=== PATIENT | male | born 1985 | race Caucasian/White ===

== ENCOUNTER 2017-03-12 12:40 | Emergency (ER) | payer OTHER ==
--- NOTE | 2017-03-12 13:50 | DIAGNOSTIC IMAGING REPORT ---
PROCEDURE: XR CHEST 2 VIEW INDICATION: Poor inspiration. TECHNIQUE: PA and lateral view. COMPARISON: None. FINDINGS: Poor inspiration but lungs are clear. Small right pleural effusion versus thickening. Cardiovascular structures are normal. Bony thorax is unremarkable. IMPRESSION: 1. Poor inspiration 2. Small right pleural effusion versus pleural thickening.
--- NOTE | 2017-03-12 16:17 | DIAGNOSTIC IMAGING REPORT ---
PROCEDURE: CTA THORAX WITH CONTRAST INDICATION: Right-sided chest pain. TECHNIQUE: 80 ml of Isovue 370 was injected intravenously and axial images were obtained of the entire thorax with 3D sagittal and coronal MIP reconstructions. COMPARISON: Chest x-ray 03/12/2017. FINDINGS: No evidence of pulmonary emboli. There are two 4 mm right upper lobe nodules, 8 mm minor fissure and 4 mm right major fissure nodules, indeterminate but likely postinflammatory. Minor right lower lobe atelectasis with small bilateral pleural effusions, right greater than left. Mild bilateral hilar adenopathy. Normal thoracic aorta without dissection or aneurysm. Normal heart size. Small hiatal hernia. Mild degenerative changes of the spine. IMPRESSION: 1. No evidence of pulmonary emboli 2. Small bilateral pleural effusions which may reflect fluid overload. Consider cardiac, hepatic or renal disease. 3. Minor right lower lobe atelectasis 4. Nonspecific small pulmonary nodules, indeterminate but likely postinflammatory 5. Results discussed with Caryn Candelaria, PAC
--- NOTE | 2017-03-12 16:23 | ED ORDER SUMMARY ---
..... Patient: PARAG ARIAS OrderSheet [facility] VisitID: [id number] [place] [address] 31y, M Registration Date/Time: 03/12/2017 ORDER SHEET Weight: 149.6 kg (stated) Allergies: No Known Drug Allergy GENERAL ORDERS: Chest 2V Urgent (13:24 03/12/2017 EKoroleva P.A.-C) (Ack 13:27 Shukri) (13:28 LWhalen R.N.) Supply Chain Logistics Manager (Continuous) (13:24 03/12/2017 EKoroleva P.A.-C) (13:28 LWhalen R.N.) Cardiac Panel Stat (13:24 03/12/2017 EKoroleva P.A.-C) (Ack 13:27 Shukri) (13:28 LWhalen R.N.) EKG - ER Stat (13:24 03/12/2017 EKoroleva P.A.-C) (Ack 13:27 Shukri) (13:27 Shukri) Vitals (14:52 03/12/2017 EKoroleva P.A.-C) (14:53 LWhalen R.N.) D-Dimer Urgent (15:03 03/12/2017 EKoroleva P.A.-C) (Ack 15:08 Shukri) CTA Thorax w Cont (No) (see lab) Urgent (15:39 03/12/2017 EKoroleva P.A.-C) (Ack 16:09 Shukri) (16:27 Bijuigor) MEDICATION ORDERS: IV FLUIDS: IV Saline Lock (13:24 03/12/2017 EKoroleva P.A.-C) (Ack 13:28 LWhalen R.N.) (15:43 LWhalen R.N.) Toradol IV 30 mg (NOW) (14:49 03/12/2017 EKoroleva P.A.-C) (14:53 LWhalen R.N.) Dilaudid IV 0.5 mg (HIGH ALERT MEDICATION, NOW) (15:39 03/12/2017 EKoroleva P.A.-C) (15:43 Louie Wisdom) ORDER SHEET NOTES: [Electronically signed by Seema Candelaria P.A.-C (16:32 03/12/2017)] [Electronically signed by Galo Draper R.N. (16:34 03/12/2017)] [Electronically locked/signed by Galo Draper R.N. (16:34 03/12/2017)]
--- NOTE | 2017-03-12 16:23 | ED NURSING NOTES ---
Clinical Report - Nurses [facility] [address] [place] [address] 03/12/2017 12:42 Patient: PARAG ARIAS TRIAGE Triage time 12:51 Mar 12 2017. Acuity: LEVEL 3. Chief Complaint: CHEST PAIN. ЕЛЕНА COMA SCORE: Елена Coma Scale: 15- eyes open spontaneously (4); best verbal response- oriented x 4 (5); best motor response- obeys commands (6). --12:56 Alanna Anderson R.N. 12:51 03/12/17. BP: 168/106. HR: 66. RR: 20. O2 saturation: 98%. Temp: 98.4 F. Pain level now 9/10. --12:56 Alanna Anderson R.N. Weight: 149.6 kg stated. Height/Length: 68 inches Per Patient. BMI: 50.2. --12:53 Alanna Anderson R.N. Medications Atenolol Oral. --12:51 Alanna Anderson R.N. Lisinopril Oral. --12:52 Alanna Anderson R.N. Citalopram Hydrobromide Oral. --12:52 Alanna Anderson R.N. Naproxen Oral. --12:52 Alanna Anderson R.N. Omeprazole Oral. --12:53 Alanna Anderson R.N. High cholesterol. --12:53 Alanna Anderson R.N. Flonase Nasal. --12:53 Alanna Anderson R.N. Allergies No Known Drug Allergy. --16:33 Galo Draper R.N. History Arrived by private vehicle. Historian: patient. Accompanied by family. Onset. (2 weeks). ( Right sided chest pain for two weeks now. Has a slight cough.). He has had a cough. No difficulty breathing, sweating episodes, nausea, vomiting or fever. Treatment OPERATIONAL INTELLIGENCE OFFICER: None. PAST MEDICAL HX: Hypertension. No history of diabetes mellitus, heart disease or lung disease. Immunizations: up-to-date. SOCIAL HX: Current every day heavy tobacco smoker- 1 pack per day. Occasional alcohol use; consumes beer weekly. History of drug use: marijuana. SELF HARM ASSESSMENT: A self harm assessment was performed. The patient answered "no" to the question "Have you recently felt down, depressed, or hopeless?" and "Do you have thoughts of harming or killing yourself?". FALL RISK ASSESSMENT: Fall risk assessment completed. No fall risk identified. NUTRITIONAL RISK ASSESSMENT: The nutritional risk assessment revealed no deficiencies. FUNCTIONAL ASSESSMENT: Functional assessment: no impairments noted. LEARNING NEEDS ASSESSMENT: The learning needs assessment revealed no barriers. ABUSE ASSESSMENT: Abuse assessment: (yes) The patient was asked "Do you feel safe in your home?". SKIN INTEGRITY ASSESSMENT: Skin integrity risk assessment completed. No skin integrity risk identified. --12:56 Alanna Anderson R.N. PROBLEMS: Acid reflux . Depression . Elevated Cholesterol. High blood pressure . --12:54 Alanna Anderson R.N. ADDITIONAL SURGERIES: Tonsellectomy . --12:54 Alanna Anderson R.N. Interventions ID band on patient. --12:56 Alanna Anderson R.N. PHYSICAL ASSESSMENT Ambulatory to room. GENERAL / NEURO / PSYCH: Alert. Oriented X 4. Appears in no acute distress. HEENT: Mucous membranes are pink. RESPIRATORY: Respirations not labored. Chest wall tenderness. Expiratory wheezes present; wheezes audible without auscultation. CVS: Normal sinus rhythm noted. Heart sounds within normal limits. Pulses within normal limits. Capillary refill less than 2 seconds. GI / : Abdomen soft and nontender. ( Last BM yesterday and normal). EXTREMITIES: No lower extremity edema. SKIN: Skin is warm and dry. Normal skin turgor. Skin is non-tender. --12:57 Alanna Anderson R.N. NURSING PROGRESS NOTES The initial plan of care for this patient includes an assessment with efforts to address patient positioning, appropriate ambient lighting and comfortable environmental temperature; impairment of the cardiovascular and musculoskeletal system. monitoring tech, pulse oximeter and NIBP monitor placed on patient. Patient gowned. Head of bed elevated 45 degrees. Reassurance given. Call light placed in reach. Side rails up x 1. Bed placed in lowest position. Brakes of bed on. --12:58 Alanna Anderson R.N. 13:12 03/12/2017 Site #1 started via IV in the right upper arm with an 20g angiocath, with aseptic technique and good blood return; one attempt. Blood drawn: rainbow set. Labeled in the presence of the patient and sent to the lab. Saline lock flushed with 10 mL saline. --13:12 Alanna Anderson R.N. 14:53 03/12/2017 Toradol IVP 30 mg given over 2 minute(s) via site #1. Allergies verified and confirmed 5 rights. IV patency established. IV site checked: no pain, redness, or swelling. IV flushed thoroughly pre- and post-medication administration. --14:53 Alanna Anderson R.N. 14:55 03/12/17. BP: 152/71. HR: 60. RR: 18. O2 saturation: 97%. Temp: 98.4 F. Pain level now: 7/10. 14:30 03/12/17. BP: 153/101. HR: 65. RR: 20. O2 saturation: 96%. 13:30 03/12/17. BP: 162/93. HR: 65. RR: 18. O2 saturation: 98%. --14:57 Alanna Anderson R.N. 15:43 03/12/2017 Dilaudid (HYDROmorphone HCl PF) IVP 0.5 mg given over 2 minute(s) via site #1. Allergies verified, confirmed 5 rights and sedative warning given to the patient and patient's family. IV patency established. IV site checked: no pain, redness, or swelling. IV flushed thoroughly pre- and post-medication administration. --15:43 Alanna Anderson R.N. 15:44 03/12/17. BP: 132/81. HR: 66. RR: 18. O2 saturation: 96%. Pain level now 7/10. --15:44 Alanna Anderson R.N. DISPOSITION / DISCHARGE 16:29 03/12/2017 Site #1 removed upon discharge. Catheter intact. Bandaid applied. --16:29 Galo Draper R.N. Departure time: 16:31. Condition at departure: improved. No learning barriers present. Discharge instructions provided and reviewed with the patient. Reviewed medication(s) side effects, precautions, dosing and course information. Prescription(s) given to the patient (hydrocodone). Patient verbalized understanding. Written instructions provided in [place]. The patient was discharged by the physician assistant chief of police. He was discharged home and accompanied by parent. He left the Emergency Department ambulatory and via private vehicle. Parent driving. ЕЛЕНА COMA SCORE: [place] Coma Scale: 15- eyes open spontaneously (4); best verbal response- oriented x 4 (5); best motor response- obeys commands (6). --16:33 Galo Draper R.N. 16:28 03/12/17. BP: 148/71. HR: 85. RR: 16. O2 saturation: 98%. Pain level now 0/10. --16:33 Galo Draper R.N. Locked/Released at 03/12/2017 16:34 by Galo Draper R.N.
--- NOTE | 2017-03-12 16:23 | ED ORDER SUMMARY ---
..... Patient: PARAG ARIAS OrderSheet [facility] VisitID: [id number] [place] [address] 31y, M Registration Date/Time: 03/12/2017 ORDER SHEET Weight: 149.6 kg (stated) Allergies: No Known Drug Allergy GENERAL ORDERS: Chest 2V Urgent (13:24 03/12/2017 EKoroleva P.A.-C) (Ack 13:27 Shukri) (13:28 LWhalen R.N.) Ad Operations Specialist (Continuous) (13:24 03/12/2017 EKoroleva P.A.-C) (13:28 LWhalen R.N.) Cardiac Panel Stat (13:24 03/12/2017 EKoroleva P.A.-C) (Ack 13:27 Shukri) (13:28 LWhalen R.N.) EKG - ER Stat (13:24 03/12/2017 EKoroleva P.A.-C) (Ack 13:27 Shukri) (13:27 Shukri) Vitals (14:52 03/12/2017 EKoroleva P.A.-C) (14:53 LWhalen R.N.) D-Dimer Urgent (15:03 03/12/2017 EKoroleva P.A.-C) (Ack 15:08 Shukri) CTA Thorax w Cont (No) (see lab) Urgent (15:39 03/12/2017 EKoroleva P.A.-C) (Ack 16:09 Shukri) (16:27 Bijuigor) MEDICATION ORDERS: IV FLUIDS: IV Saline Lock (13:24 03/12/2017 EKoroleva P.A.-C) (Ack 13:28 LWhalen R.N.) (15:43 LWhalen R.N.) Toradol IV 30 mg (NOW) (14:49 03/12/2017 EKoroleva P.A.-C) (14:53 LWhalen R.N.) Dilaudid IV 0.5 mg (HIGH ALERT MEDICATION, NOW) (15:39 03/12/2017 EKoroleva P.A.-C) (15:43 Louie Wisdom) ORDER SHEET NOTES: [Electronically signed by Seema Candelaria P.A.-C (16:32 03/12/2017)] [Electronically signed by Galo Draper R.N. (16:34 03/12/2017)] [Electronically locked/signed by Galo Draper R.N. (16:34 03/12/2017)]
--- NOTE | 2017-03-12 16:23 | ED CLINICAL REPORT ---
Clinical Report - Physicians/Mid Levels [facility] [address] [place] [address] 03/12/2017 12:42 Patient: PARAG ARIAS Time Seen: 13:22 Mar 12 2017. Arrived- By private vehicle. Historian- patient. HISTORY OF PRESENT ILLNESS Chief Complaint: COUGH. This started just prior to arrival and is still present. No difficulty breathing, chest discomfort, fever, chills or sore throat. No nasal congestion or discharge or sinus pressure. He has had chest pain. (Patient reports pain over the last 2 weeks. Patient reports today this morning had worsening of the pain. Reports moving, and having sharp pain to the right side, such pain is not improving. Patient denies any history of PE or DVT. Patient reports being prediabetic, history of hypertension and hyperglycemia. Patient is an every day smoker, was then long smoking history.). Additional history - No known contact with a sick individual. No recent travel. REVIEW OF SYSTEMS No headache, vomiting, diarrhea, pedal edema or calf pain. All systems otherwise negative, except as recorded above. SOCIAL HISTORY Current every day smoker (smoking since age 11). Alcohol use. History of drug use: marijuana. ADDITIONAL NOTES The nursing notes have been reviewed. PHYSICAL EXAM Vital Signs: 03/12/2017 12:51 BP: 168/106. HR: 66. RR: 20. O2 saturation: 98%. Temp: 98.4 F. Appearance: Alert. Eyes: Eyes normal inspection. ENT: Ears normal. Nose normal. Pharynx normal. Uvula midline. No tonsillar exudate or muffled or hoarse voice. Neck: Normal inspection. No meningeal signs or lymphadenopathy. CVS: Normal heart rate and rhythm. Heart sounds normal. No cardiac murmur. No decreased pulses. Respiratory: No respiratory distress. Breath sounds normal. No accessory muscle use, splinting, decreased breath sounds or rales. right pain tenderness on palpation, no rash, no erythema. Abdomen: Soft and nontender. Obese. Neuro: Oriented X 3. LABS, X-RAYS, AND EKG Chest X-ray: (IMPRESSION: 1. Poor inspiration 2. Small right pleural effusion versus pleural thickening. Electronically Final signed by:Popeye Minaya MD 03/12/2017 1:49:57 PM). Laboratory Tests: CBC w Diff: (VEE: 03/12/2017 13:10) ( [facility] 03/12/2017 13:45) Final results Test Result Flag Units (Reference) WHITE BLOOD COUNT 10.0 K/uL (4.5-11.5) RED BLOOD COUNT 4.49 L M/uL (4.50-5.90) HEMOGLOBIN 13.1 L gm/dL (13.5-17.5) HEMATOCRIT 39.5 L % (41.0-53.0) MEAN CELL VOLUME 88 fL (80-100) MEAN CORPUSCULAR HGB 29 pg (26-34) MEAN CORPUSCULAR HGB CONC 33 g/dL (31-37) RED CELL DISTRIBUTION WIDTH 14.3 % (11.6-14.8) PLATELET COUNT 203 K/uL (150-400) NEUTROPHIL % 80.8 H % (50-75) LYMPH % 11.2 L % (25-40) MONO % 5.8 % (3-14) EOSINOPHIL % 1.6 % (0-4) BASOPHIL % 0.6 % (0-2) [id number]: (VEE: 03/12/2017 13:10) ( [facility] 03/12/2017 15:16) Final results Test Result Flag Units (Reference) D-DIMER QUANTITATIVE 1.80 H ug/mLFEU (0.27-0.52) The primary value of this quantitative assay relates toits negative predictive value (i.e. exclusion) of pulmonaryembolism/deep vein thrombosis/DIC.Elevated levels of d-dimer may also occur with:, age, cancer, inflammation, liver disease,post-op, infection, hematoma, coronary disease, peripheralarteriopathy, bleeding disorders and thrombolytic treatment.Results should be correlated with other clinical andradiological data.Testing Methodology: Latex Immunoassay CHEM 13 PANEL: (VEE: 03/12/2017 13:10) ( [facility] 03/12/2017 13:53) Final results Test Result Flag Units (Reference) GLUCOSE 106 mg/dL (70-110) BUN 13 mg/dL (7-18) CREATININE 0.8 mg/dL (0.6-1.3) Estimated GFR >60 mL/min Estimated GFR- >60 mL/min Note: Persistent reduction over 3 months in eGFR<60 mL/min/1.73 m2 defines CKD. Patients with eGFR values>=60 mL/min/1.73 m2 may also have CKD if evidence ofpersistent proteinuria. Additional information may be foundat www.kidney.org. SODIUM 140 mmol/L (136-145) POTASSIUM 4.1 mmol/L (3.5-5.1) CHLORIDE 102 mmol/L (98-107) CARBON DIOXIDE 28 mmol/L (21-32) CALCIUM 9.2 mg/dL (8.5-10.1) TOTAL PROTEIN 7.4 g/dL (6.4-8.2) ALBUMIN 3.4 g/dL (3.3-5.0) BILIRUBIN, TOTAL 0.5 mg/dL (0.0-1.0) ALKALINE PHOSPHATASE 89 U/L (46-116) AST (SGOT) 29 U/L (15-37) ALT (SGPT) 48 U/L (12-78) MAGNESIUM 1.5 L mg/dL (1.8-2.4) CPK 66 U/L (24-260) TROPONIN I <0.05 ng/mL (0.00-1.5) TROPONIN REFERENCE RANGE:<0.1 NEGATIVE0.1-1.5 INDETERMINANT>1.5 POSITIVE . Note - Tests: (CTA chest: IMPRESSION: 1. No evidence of pulmonary emboli 2. Small bilateral pleural effusions which may reflect fluid overload. Consider cardiac, hepatic or renal disease. 3. Minor right lower lobe atelectasis 4. Nonspecific small pulmonary nodules, indeterminate but likely postinflammatory 5. Results discussed with SEEMA Caceres Electronically Final signed by:Popeye Minaya MD 03/12/2017 4:17:23 PM). PROGRESS AND PROCEDURES Course of Care: I had an intense conversation with the patient in regards to his predisposition for health risk and cardiac concerns, as he is prediabetic, obese, smoker, hypertensive and with hyperlipidemia. I informed patient that he needs immediate changes to his diet, weight loss as well as smoking cessation. He seems to be understanding of such, unsure if he will continue No signs of PE. Patient with ongoing pain over the last 2 weeks it is reproducible, questionait is a strain, as he reports he has been lifting recently. Patient with otherwise pain for 2 weeks and negative workup in the emergency department beyond a small pleural effusion bilateral in nature. Unclear etiology of such or how long such has been ongoing. No otherwise edema noted of the patient, no swelling. Patient understands need to follow-up, discussed diet changes, Lysol modifications. Discussed urgency of this, as he is at risk of multiple acute processes such as stroke and [place] if he does not modify his life. 03/12/2017 15:44 BP: 132/81. HR: 66. RR: 18. O2 saturation: 96%. 03/12/2017 14:55 BP: 152/71. HR: 60. RR: 18. O2 saturation: 97%. Temp: 98.4 F. Pain level now: 7/10. Patient is stable. Physical exam findings are improved. Symptoms better. Patient/family counseled. Disposition: Discharged. CLINICAL IMPRESSION Chest pain .12 lead EKG performed. Diabetes (PRE-Diabetic). Hypertension. Lifestyle problems: obesity. Substance abuse problems: abuse of nicotine. Substance dependence problems: dependence on nicotine. INSTRUCTIONS Prescription Medications: Hydrocodone/APAP 5mg / 325mg: take 1 orally every 6 hours as needed for pain. Dispense ten (10). No refill. Follow-up: Follow up with your doctor Wednesday in one week. (Electronically signed by Seema Candelaria P.A.-C 03/12/2017 16:32)
--- NOTE | 2017-03-12 16:23 | ED CLINICAL REPORT ---
Clinical Report - Physicians/Mid Levels [facility] [address] [place] [address] 03/12/2017 12:42 Patient: PARAG ARIAS Time Seen: 13:22 Mar 12 2017. Arrived- By private vehicle. Historian- patient. HISTORY OF PRESENT ILLNESS Chief Complaint: COUGH. This started just prior to arrival and is still present. No difficulty breathing, chest discomfort, fever, chills or sore throat. No nasal congestion or discharge or sinus pressure. He has had chest pain. (Patient reports pain over the last 2 weeks. Patient reports today this morning had worsening of the pain. Reports moving, and having sharp pain to the right side, such pain is not improving. Patient denies any history of PE or DVT. Patient reports being prediabetic, history of hypertension and hyperglycemia. Patient is an every day smoker, was then long smoking history.). Additional history - No known contact with a sick individual. No recent travel. REVIEW OF SYSTEMS No headache, vomiting, diarrhea, pedal edema or calf pain. All systems otherwise negative, except as recorded above. SOCIAL HISTORY Current every day smoker (smoking since age 11). Alcohol use. History of drug use: marijuana. ADDITIONAL NOTES The nursing notes have been reviewed. PHYSICAL EXAM Vital Signs: 03/12/2017 12:51 BP: 168/106. HR: 66. RR: 20. O2 saturation: 98%. Temp: 98.4 F. Appearance: Alert. Eyes: Eyes normal inspection. ENT: Ears normal. Nose normal. Pharynx normal. Uvula midline. No tonsillar exudate or muffled or hoarse voice. Neck: Normal inspection. No meningeal signs or lymphadenopathy. CVS: Normal heart rate and rhythm. Heart sounds normal. No cardiac murmur. No decreased pulses. Respiratory: No respiratory distress. Breath sounds normal. No accessory muscle use, splinting, decreased breath sounds or rales. right pain tenderness on palpation, no rash, no erythema. Abdomen: Soft and nontender. Obese. Neuro: Oriented X 3. LABS, X-RAYS, AND EKG Chest X-ray: (IMPRESSION: 1. Poor inspiration 2. Small right pleural effusion versus pleural thickening. Electronically Final signed by:Popeye Minaya MD 03/12/2017 1:49:57 PM). Laboratory Tests: CBC w Diff: (VEE: 03/12/2017 13:10) [facility]12[facility] 13:45) Final results Test Result Flag Units (Reference) WHITE BLOOD COUNT 10.0 K/uL (4.5-11.5) RED BLOOD COUNT 4.49 L M/uL (4.50-5.90) HEMOGLOBIN 13.1 L gm/dL (13.5-17.5) HEMATOCRIT 39.5 L % (41.0-53.0) MEAN CELL VOLUME 88 fL (80-100) MEAN CORPUSCULAR HGB 29 pg (26-34) MEAN CORPUSCULAR HGB CONC 33 g/dL (31-37) RED CELL DISTRIBUTION WIDTH 14.3 % (11.6-14.8) PLATELET COUNT 203 K/uL (150-400) NEUTROPHIL % 80.8 H % (50-75) LYMPH % 11.2 L % (25-40) MONO % 5.8 % (3-14) EOSINOPHIL % 1.6 % (0-4) BASOPHIL % 0.6 % (0-2) [id number]: (VEE: 03/12/2017 13:10) ( [facility] 03/12/2017 15:16) Final results Test Result Flag Units (Reference) D-DIMER QUANTITATIVE 1.80 H ug/mLFEU (0.27-0.52) The primary value of this quantitative assay relates toits negative predictive value (i.e. exclusion) of pulmonaryembolism/deep vein thrombosis/DIC.Elevated levels of d-dimer may also occur with:, age, cancer, inflammation, liver disease,post-op, infection, hematoma, coronary disease, peripheralarteriopathy, bleeding disorders and thrombolytic treatment.Results should be correlated with other clinical andradiological data.Testing Methodology: Latex Immunoassay CHEM 13 PANEL: (VEE: 03/12/2017 13:10) ( [facility] 03/12/2017 13:53) Final results Test Result Flag Units (Reference) GLUCOSE 106 mg/dL (70-110) BUN 13 mg/dL (7-18) CREATININE 0.8 mg/dL (0.6-1.3) Estimated GFR >60 mL/min Estimated GFR- >60 mL/min Note: Persistent reduction over 3 months in eGFR<60 mL/min/1.73 m2 defines CKD. Patients with eGFR values>=60 mL/min/1.73 m2 may also have CKD if evidence ofpersistent proteinuria. Additional information may be foundat www.kidney.org. SODIUM 140 mmol/L (136-145) POTASSIUM 4.1 mmol/L (3.5-5.1) CHLORIDE 102 mmol/L (98-107) CARBON DIOXIDE 28 mmol/L (21-32) CALCIUM 9.2 mg/dL (8.5-10.1) TOTAL PROTEIN 7.4 g/dL (6.4-8.2) ALBUMIN 3.4 g/dL (3.3-5.0) BILIRUBIN, TOTAL 0.5 mg/dL (0.0-1.0) ALKALINE PHOSPHATASE 89 U/L (46-116) AST (SGOT) 29 U/L (15-37) ALT (SGPT) 48 U/L (12-78) MAGNESIUM 1.5 L mg/dL (1.8-2.4) CPK 66 U/L (24-260) TROPONIN I <0.05 ng/mL (0.00-1.5) TROPONIN REFERENCE RANGE:<0.1 NEGATIVE0.1-1.5 INDETERMINANT>1.5 POSITIVE . Note - Tests: (CTA chest: IMPRESSION: 1. No evidence of pulmonary emboli 2. Small bilateral pleural effusions which may reflect fluid overload. Consider cardiac, hepatic or renal disease. 3. Minor right lower lobe atelectasis 4. Nonspecific small pulmonary nodules, indeterminate but likely postinflammatory 5. Results discussed with SEEMA Caceres Electronically Final signed by:Popeye Minaya MD 03/12/2017 4:17:23 PM). PROGRESS AND PROCEDURES Course of Care: I had an intense conversation with the patient in regards to his predisposition for health risk and cardiac concerns, as he is prediabetic, obese, smoker, hypertensive and with hyperlipidemia. I informed patient that he needs immediate changes to his diet, weight loss as well as smoking cessation. He seems to be understanding of such, unsure if he will continue No signs of PE. Patient with ongoing pain over the last 2 weeks it is reproducible, questionait is a strain, as he reports he has been lifting recently. Patient with otherwise pain for 2 weeks and negative workup in the emergency department beyond a small pleural effusion bilateral in nature. Unclear etiology of such or how long such has been ongoing. No otherwise edema noted of the patient, no swelling. Patient understands need to follow-up, discussed diet changes, Lysol modifications. Discussed urgency of this, as he is at risk of multiple acute processes such as stroke and [place] if he does not modify his life. 03/12/2017 15:44 BP: 132/81. HR: 66. RR: 18. O2 saturation: 96%. 03/12/2017 14:55 BP: 152/71. HR: 60. RR: 18. O2 saturation: 97%. Temp: 98.4 F. Pain level now: 7/10. Patient is stable. Physical exam findings are improved. Symptoms better. Patient/family counseled. Disposition: Discharged. CLINICAL IMPRESSION Chest pain .12 lead EKG performed. Diabetes (PRE-Diabetic). Hypertension. Lifestyle problems: obesity. Substance abuse problems: abuse of nicotine. Substance dependence problems: dependence on nicotine. INSTRUCTIONS Prescription Medications: Hydrocodone/APAP 5mg / 325mg: take 1 orally every 6 hours as needed for pain. Dispense ten (10). No refill. Follow-up: Follow up with your doctor Wednesday in one week. (Electronically signed by Seema Candelaria P.A.-C 03/12/2017 16:32)
--- NOTE | 2017-03-12 16:23 | ED NURSING NOTES ---
Clinical Report - [facility] [address] [place] [address] 03/12/2017 12:42 Patient: PARAG ARIAS TRIAGE Triage time 12:51 Mar 12 2017. Acuity: LEVEL 3. Chief Complaint: CHEST PAIN. ЕЛЕНА COMA SCORE: Елена Coma Scale: 15- eyes open spontaneously (4); best verbal response- oriented x 4 (5); best motor response- obeys commands (6). --12:56 Alanna Anderson R.N. 12:51 03/12/17. BP: 168/106. HR: 66. RR: 20. O2 saturation: 98%. Temp: 98.4 F. Pain level now 9/10. --12:56 Alanna Anderson R.N. Weight: 149.6 kg stated. Height/Length: 68 inches Per Patient. BMI: 50.2. --12:53 Alanna Anderson R.N. Medications Atenolol Oral. --12:51 Alanna Anderson R.N. Lisinopril Oral. --12:52 Alanna Anderson R.N. Citalopram Hydrobromide Oral. --12:52 Alanna Anderson R.N. Naproxen Oral. --12:52 Alanna Anderson R.N. Omeprazole Oral. --12:53 Alanna Anderson R.N. High cholesterol. --12:53 Alanna Anderson R.N. Flonase Nasal. --12:53 Alanna Anderson R.N. Allergies No Known Drug Allergy. --16:33 Galo Draper R.N. History Arrived by private vehicle. Historian: patient. Accompanied by family. Onset. (2 weeks). ( Right sided chest pain for two weeks now. Has a slight cough.). He has had a cough. No difficulty breathing, sweating episodes, nausea, vomiting or fever. Treatment FLITCH HANGER: None. PAST MEDICAL HX: Hypertension. No history of diabetes mellitus, heart disease or lung disease. Immunizations: up-to-date. SOCIAL HX: Current every day heavy tobacco smoker- 1 pack per day. Occasional alcohol use; consumes beer weekly. History of drug use: marijuana. SELF HARM ASSESSMENT: A self harm assessment was performed. The patient answered "no" to the question "Have you recently felt down, depressed, or hopeless?" and "Do you have thoughts of harming or killing yourself?". FALL RISK ASSESSMENT: Fall risk assessment completed. No fall risk identified. NUTRITIONAL RISK ASSESSMENT: The nutritional risk assessment revealed no deficiencies. FUNCTIONAL ASSESSMENT: Functional assessment: no impairments noted. LEARNING NEEDS ASSESSMENT: The learning needs assessment revealed no barriers. ABUSE ASSESSMENT: Abuse assessment: (yes) The patient was asked "Do you feel safe in your home?". SKIN INTEGRITY ASSESSMENT: Skin integrity risk assessment completed. No skin integrity risk identified. --12:56 Alanna Anderson R.N. PROBLEMS: Acid reflux . Depression . Elevated Cholesterol. High blood pressure . --12:54 Alanna Anderson R.N. ADDITIONAL SURGERIES: Tonsellectomy . --12:54 Alanna Anderson R.N. Interventions ID band on patient. --12:56 Alanna Anderson R.N. PHYSICAL ASSESSMENT Ambulatory to room. GENERAL / NEURO / PSYCH: Alert. Oriented X 4. Appears in no acute distress. HEENT: Mucous membranes are pink. RESPIRATORY: Respirations not labored. Chest wall tenderness. Expiratory wheezes present; wheezes audible without auscultation. CVS: Normal sinus rhythm noted. Heart sounds within normal limits. Pulses within normal limits. Capillary refill less than 2 seconds. GI / : Abdomen soft and nontender. ( Last BM yesterday and normal). EXTREMITIES: No lower extremity edema. SKIN: Skin is warm and dry. Normal skin turgor. Skin is non-tender. --12:57 Alanna Anderson R.N. NURSING PROGRESS NOTES The initial plan of care for this patient includes an assessment with efforts to address patient positioning, appropriate ambient lighting and comfortable environmental temperature; impairment of the cardiovascular and musculoskeletal system. media monitor, pulse oximeter and NIBP monitor placed on patient. Patient gowned. Head of bed elevated 45 degrees. Reassurance given. Call light placed in reach. Side rails up x 1. Bed placed in lowest position. Brakes of bed on. --12:58 Alanna Anderson R.N. 13:12 03/12/2017 Site #1 started via IV in the right upper arm with an 20g angiocath, with aseptic technique and good blood return; one attempt. Blood drawn: rainbow set. Labeled in the presence of the patient and sent to the lab. Saline lock flushed with 10 mL saline. --13:12 Alanna Anderson R.N. 14:53 03/12/2017 Toradol IVP 30 mg given over 2 minute(s) via site #1. Allergies verified and confirmed 5 rights. IV patency established. IV site checked: no pain, redness, or swelling. IV flushed thoroughly pre- and post-medication administration. --14:53 Alanna Anderson R.N. 14:55 03/12/17. BP: 152/71. HR: 60. RR: 18. O2 saturation: 97%. Temp: 98.4 F. Pain level now: 7/10. 14:30 03/12/17. BP: 153/101. HR: 65. RR: 20. O2 saturation: 96%. 13:30 03/12/17. BP: 162/93. HR: 65. RR: 18. O2 saturation: 98%. --14:57 Alanna Anderson R.N. 15:43 03/12/2017 Dilaudid (HYDROmorphone HCl PF) IVP 0.5 mg given over 2 minute(s) via site #1. Allergies verified, confirmed 5 rights and sedative warning given to the patient and patient's family. IV patency established. IV site checked: no pain, redness, or swelling. IV flushed thoroughly pre- and post-medication administration. --15:43 Alanna Anderson R.N. 15:44 03/12/17. BP: 132/81. HR: 66. RR: 18. O2 saturation: 96%. Pain level now 7/10. --15:44 Alanna Anderson R.N. DISPOSITION / DISCHARGE 16:29 03/12/2017 Site #1 removed upon discharge. Catheter intact. Bandaid applied. --16:29 Galo Draper R.N. Departure time: 16:31. Condition at departure: improved. No learning barriers present. Discharge instructions provided and reviewed with the patient. Reviewed medication(s) side effects, precautions, dosing and course information. Prescription(s) given to the patient (hydrocodone). Patient verbalized understanding. Written instructions provided in Kosovan. 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 He was discharged home and accompanied by parent. He left the Emergency Department ambulatory and via private vehicle. Parent driving. ЕЛЕНА COMA SCORE: [place] Coma Scale: 15- eyes open spontaneously (4); best verbal response- oriented x 4 (5); best motor response- obeys commands (6). --16:33 Galo Draper R.N. 16:28 03/12/17. BP: 148/71. HR: 85. RR: 16. O2 saturation: 98%. Pain level now 0/10. --16:33 Galo Draper R.N. Locked/Released at 03/12/2017 16:34 by Galo Draper R.N.
--- NOTE | 2017-03-12 16:34 | ED DISCHARGE INSTRUCTIONS ---
Patient: PARAG ARIAS [facility] Visit[facility] [id number] [place] [address] 31y, M Registration Date/Time: 03/12/2017 Chest pain .12 lead EKG performed. Diabetes (PRE-Diabetic). Hypertension. Lifestyle problems: obesity. Substance abuse problems: abuse of nicotine. Substance dependence problems: dependence on nicotine. INSTRUCTIONS Prescription Medications: Hydrocodone/APAP 5mg / 325mg: take 1 orally every 6 hours as needed for pain. Dispense ten (10). No refill. Follow-up: Follow up with your doctor Wednesday in one week. ADDITIONAL INFORMATION How To Quit Smoking Smoking is one of the hardest habits to break. About half of all those who have ever smoked have been able to quit, and most of those (about 70%) who still smoke want to quit. Here are some of the best ways to stop smoking. Keep Trying: It takes most smokers about 8 tries before they are finally able to fully quit. So, the more often you try and fail, the better your chance of quitting the next time! So, don't give up! Go Cold [place]: Most ex-smokers quit cold turkey. Trying to cut back gradually doesn't seem to work as well, perhaps because it continues the smoking habit. Also, it is possible to fool yourself by inhaling more while smoking fewer cigarettes. This results in the same amount of nicotine in your body! Get Support: Support programs can make an important difference, especially for the heavy smoker. These groups offer lectures, methods to change your behavior and peer support. Call the free national Quitline for more information. 825-LICC-YIV (385-828-3882). Low-cost or free programs are offered by many hospitals, local chapters of the [place] [employer] (571-102-9502) and the [place] [employer] (388-551-9565). Support at home is important too. Non-smokers can help by offering praise and encouragement. If the smoker fails to quit, encourage them to try again! Qjcx-Plp-Vowayju Medicines: For those who can't quit on their own, Nicotine Replacement Therapy (NRT) may make quitting much easier. Certain aids such as the nicotine patch, gum and lozenge are available without a prescription. However, it is best to use these under the guidance of your doctor. The skin patch provides a steady supply of nicotine to the body. Nicotine gum and lozenge gives temporary bursts of low levels of nicotine. Both methods take the edge off the craving for cigarettes. WARNING: If you feel symptoms of nicotine overdose, such as nausea, vomiting, dizziness, weakness, or fast heartbeat, stop using these and see your doctor. Prescription Medicines: After evaluating your smoking patterns and prior attempts at quitting, your doctor may offer a prescription medicine such as bupropion (Zyban, Wellbutrin), varenicline (Chantix, Champix), a niocotine inhaler or nasal spray. Each has its unique advantage and side effects which your doctor can review with you. Health Benefits Of Quitting: The benefits of quitting start right away and keep improving the longer you go without smokin minutes: blood pressure and pulse return to normal 8 hours: oxygen levels return to normal 2 days: ability to smell and taste begins to improve as damaged nerves start to regrow 2-3 weeks: circulation and lung function improves 1-9 months: decreased cough, congestion and shortness of breath; less tired 1 year: risk of heart attack decreases by half 5 years: risk of lung cancer decreases by half; risk of stroke becomes the same as a non-smoker For information about how to quit smoking, visit the following links: National Cancer [place] , Clearing the Air, Quit Smoking Today - an online booklet. http://www.smokefree.gov/pubs/clearing_the_air.pdf Smokefree.gov http://smokefree.gov/ QuitNet http://www.quitnet.com/ Chest Pain, Uncertain Cause Chest pain can happen for a number of reasons. Sometimes the cause can not be determined. If yourcondition does not seem serious, and your pain does not appear to be coming from your heart, your doctor may recommend watching it closely. Sometimes the signs of a serious problem take more time to appear. Therefore, watch for the warning signs listed below. Home care After your visit, follow these recommendations: Rest today and avoid strenuous activity. Take any prescribed medicine as directed. Follow-up care Follow up with your doctor or this facility as instructed or if you do not start to feel better within 24 hours. Call 911 Get immediate medical attention if any of the following occur: A change in the type of pain: if it feels different, becomes more severe, lasts longer, or begins to spread into your shoulder, arm, neck, jaw or back Shortness of breath or increased pain with breathing Weakness, dizziness, or fainting Rapid heart beat Get prompt medical attention Call your doctor right away if any of the following occur: Cough with dark colored sputum (phlegm) or blood Fever of 100.4F(38C) or higher, or as directed by your health care provider Swelling, pain or redness in one leg Chest Wall Pain: Costochondritis The chest pain that you have had today is caused by Costochondritis. This condition is due to an inflammation of the cartilage joining the ribs to the breastbone. It is not caused by heart or lung problems. Although the exact cause for costochondritis is not known, it often occurs during times of emotional stress. It can be painful, but it is not dangerous. It usually disappears within one to two weeks, but may recur. Rarely, a more serious condition may cause symptoms similar to costochondritis; therefore, watch for the warning signs listed below. Home Care: If you feel that emotional stress is a cause of your condition, try to identify sources of that stress. It may not be obvious! Learn ways to deal with the stress in your life such as regular exercise, muscle relaxation, meditation, or simply taking time out for yourself. For more information about this, consult your doctor or go to a local bookstore and review books and tapes available on the subject of stress reduction. You may use acetaminophen (Tylenol) or ibuprofen (Motrin, Advil) to control pain, unless another pain medicine was prescribed. [ NOTE: If you have liver disease or ever had a stomach ulcer, talk with your doctor before using these medicines.] The use of heat (hot wet compress or heating pad) with or without local analgesic creams (Deep Heat Rub, Florentino Addison) will be helpful to reduce pain. Follow Up with your doctor as directed or sooner if you do not start to improve within the next two days. Get Prompt Medical Attention if any of the following occur: A change in the type of pain: if it feels different, becomes more severe, lasts longer, or spreads into your shoulder, arm, neck, jaw or back Shortness of breath or increased pain with breathing Weakness, dizziness, or fainting Cough with dark colored sputum (phlegm) or blood Abdominal pain Dark red or black stools Fever of 100.4F (38C) or higher, or as directed by your healthcare provider Chest Pain, Noncardiac Based on your visit today, the exact cause of your chest pain is not certain. Your condition does not seem serious and your pain does not appear to be coming from your heart. However, sometimes the signs of a serious problem take more time to appear. Therefore, please watch for the warning signs listed below. Home Care: Rest today and avoid strenuous activity. Take any prescribed medicine as directed. Follow Up with your doctor or this facility as instructed or if you do not start to feel better within 24 hours. Get Prompt Medical Attention if any of the following occur: A change in the type of pain: if it feels different, becomes more severe, lasts longer, or begins to spread into your shoulder, arm, neck, jaw or back Shortness of breath or increased pain with breathing Cough with dark colored sputum (phlegm) or blood Weakness, dizziness, or fainting Fever of 100.4F (38C) or higher, or as directed by your healthcare provider Swelling, pain or redness in one leg Hydrocodone Bitartrate, Acetaminophen Oral tablet What is this medicine? ACETAMINOPHEN; HYDROCODONE (a set a JEFFRY jose fen; flo droe KOE done) is a pain reliever. It is used to treat mild to moderate pain. How should I use this medicine? Take this medicine by mouth. Swallow it with a full glass of water. Follow the directions on the prescription label. If the medicine upsets your stomach, take the medicine with food or milk. Do not take more than you are told to take. Talk to your math professor regarding the use of this medicine in children. This medicine is not approved for use in children. What side effects may I notice from receiving this medicine? Side effects that you should report to your doctor or health career placement services counselor as soon as possible: allergic reactions like skin rash, itching or hives, swelling of the face, lips, or tongue breathing problems confusion feeling faint or lightheaded, falls stomach pain yellowing of the eyes or skin Side effects that usually do not require medical attention (report to your doctor or health career placement services counselor if they continue or are bothersome): nausea, vomiting stomach upset What may interact with this medicine? alcohol antihistamines isoniazid medicines for depression, anxiety, or psychotic disturbances medicines for sleep muscle relaxants naltrexone narcotic medicines (opiates) for pain phenobarbital ritonavir tramadol What if I miss a dose? If you miss a dose, take it as soon as you can. If it is almost time for your next dose, take only that dose. Do not take double or extra doses. Where should I keep my medicine? Keep out of the reach of children. This medicine can be abused. Keep your medicine in a safe place to protect it from theft. Do not share this medicine with anyone. Selling or giving away this medicine is dangerous and against the law. Store at room temperature between 15 and 30 degrees C (59 and 86 degrees F). Protect from light. Keep container tightly closed. Throw away any unused medicine after the expiration date. Discard unused medicine and used packaging carefully. Pets and children can be harmed if they find used or lost packages. What should I tell my health care provider before I take this medicine? They need to know if you have any of these conditions: brain tumor Crohn's disease, inflammatory bowel disease, or ulcerative colitis drink more than 3 alcohol-containing drinks per day drug abuse or addiction head injury heart or circulation problems kidney disease or problems going to the bathroom liver disease lung disease, asthma, or breathing problems an unusual or allergic reaction to acetaminophen, hydrocodone, other opioid analgesics, other medicines, foods, dyes, or preservatives or trying to get breast-feeding What should I watch for while using this medicine? Tell your doctor or health career placement services counselor if your pain does not go away, if it gets worse, or if you have new or a different type of pain. You may develop tolerance to the medicine. Tolerance means that you will need a higher dose of the medicine for pain relief. Tolerance is normal and is expected if you take the medicine for a long time. Do not suddenly stop taking your medicine because you may develop a severe reaction. Your body becomes used to the medicine. This does NOT mean you are addicted. Addiction is a behavior related to getting and using a drug for a non-medical reason. If you have pain, you have a medical reason to take pain medicine. Your doctor will tell you how much medicine to take. If your doctor wants you to stop the medicine, the dose will be slowly lowered over time to avoid any side effects. You may get drowsy or dizzy when you first start taking the medicine or change doses. Do not drive, use machinery, or do anything that may be dangerous until you know how the medicine affects you. Stand or sit up slowly. There are different types of narcotic medicines (opiates) for pain. If you take more than one type at the same time, you may have more side effects. Give your health care provider a list of all medicines you use. Your doctor will tell you how much medicine to take. Do not take more medicine than directed. Call emergency for help if you have problems breathing. The medicine will cause constipation. Try to have a bowel movement at least every 2 to 3 days. If you do not have a bowel movement for 3 days, call your doctor or health career placement services counselor. Too much acetaminophen can be very dangerous. Do not take Tylenol (acetaminophen) or medicines that contain acetaminophen with this medicine. Many non-prescription medicines contain acetaminophen. Always read the labels carefully. You have been given the following additional information: Smoking Cessation Chest Pain, Uncertain Cause Chest Wall Pain, Costochondritis Chest Pain, Noncardiac Hydrocodone Bitartrate, Acetaminophen Oral tablet (Electronically signed by Seema Candelaria P.A.-C 03/12/2017 16:32)
--- NOTE | 2017-03-12 16:34 | ED DISCHARGE INSTRUCTIONS ---
Patient: PARAG ARIAS General Instructions [facility] VisitID: [id number] [place] [address] 31y, M Registration Date/Time: 03/12/2017 Chest pain .12 lead EKG performed. Diabetes (PRE-Diabetic). Hypertension. Lifestyle problems: obesity. Substance abuse problems: abuse of nicotine. Substance dependence problems: dependence on nicotine. INSTRUCTIONS Prescription Medications: Hydrocodone/APAP 5mg / 325mg: take 1 orally every 6 hours as needed for pain. Dispense ten (10). No refill. Follow-up: Follow up with your doctor Wednesday in one week. ADDITIONAL INFORMATION How To Quit Smoking Smoking is one of the hardest habits to break. About half of all those who have ever smoked have been able to quit, and most of those (about 70%) who still smoke want to quit. Here are some of the best ways to stop smoking. Keep Trying: It takes most smokers about 8 tries before they are finally able to fully quit. So, the more often you try and fail, the better your chance of quitting the next time! So, don't give up! Go Cold [place]: Most ex-smokers quit cold turkey. Trying to cut back gradually doesn't seem to work as well, perhaps because it continues the smoking habit. Also, it is possible to fool yourself by inhaling more while smoking fewer cigarettes. This results in the same amount of nicotine in your body! Get Support: Support programs can make an important difference, especially for the heavy smoker. These groups offer lectures, methods to change your behavior and peer support. Call the free national Quitline for more information. 712-WSLO-ANO (189-849-8089). Low-cost or free programs are offered by many hospitals, local chapters of the [place] [employer] (744-366-0613) and the [place] (995-632-8729). Support at home is important too. Non-smokers can help by offering praise and encouragement. If the smoker fails to quit, encourage them to try again! Mffk-Rfx-Lhlqgsq Medicines: For those who can't quit on their own, Nicotine Replacement Therapy (NRT) may make quitting much easier. Certain aids such as the nicotine patch, gum and lozenge are available without a prescription. However, it is best to use these under the guidance of your doctor. The skin patch provides a steady supply of nicotine to the body. Nicotine gum and lozenge gives temporary bursts of low levels of nicotine. Both methods take the edge off the craving for cigarettes. WARNING: If you feel symptoms of nicotine overdose, such as nausea, vomiting, dizziness, weakness, or fast heartbeat, stop using these and see your doctor. Prescription Medicines: After evaluating your smoking patterns and prior attempts at quitting, your doctor may offer a prescription medicine such as bupropion (Zyban, Wellbutrin), varenicline (Chantix, Champix), a niocotine inhaler or nasal spray. Each has its unique advantage and side effects which your doctor can review with you. Health Benefits Of Quitting: The benefits of quitting start right away and keep improving the longer you go without smokin minutes: blood pressure and pulse return to normal 8 hours: oxygen levels return to normal 2 days: ability to smell and taste begins to improve as damaged nerves start to regrow 2-3 weeks: circulation and lung function improves 1-9 months: decreased cough, congestion and shortness of breath; less tired 1 year: risk of heart attack decreases by half 5 years: risk of lung cancer decreases by half; risk of stroke becomes the same as a non-smoker For information about how to quit smoking, visit the following links: National Cancer [place] , Clearing the Air, Quit Smoking Today - an online booklet. http://www.smokefree.gov/pubs/clearing_the_air.pdf Smokefree.gov http://smokefree.gov/ QuitNet http://www.quitnet.com/ Chest Pain, Uncertain Cause Chest pain can happen for a number of reasons. Sometimes the cause can not be determined. If yourcondition does not seem serious, and your pain does not appear to be coming from your heart, your doctor may recommend watching it closely. Sometimes the signs of a serious problem take more time to appear. Therefore, watch for the warning signs listed below. Home care After your visit, follow these recommendations: Rest today and avoid strenuous activity. Take any prescribed medicine as directed. Follow-up care Follow up with your doctor or this facility as instructed or if you do not start to feel better within 24 hours. Call 911 Get immediate medical attention if any of the following occur: A change in the type of pain: if it feels different, becomes more severe, lasts longer, or begins to spread into your shoulder, arm, neck, jaw or back Shortness of breath or increased pain with breathing Weakness, dizziness, or fainting Rapid heart beat Get prompt medical attention Call your doctor right away if any of the following occur: Cough with dark colored sputum (phlegm) or blood Fever of 100.4F(38C) or higher, or as directed by your health care provider Swelling, pain or redness in one leg Chest Wall Pain: Costochondritis The chest pain that you have had today is caused by Costochondritis. This condition is due to an inflammation of the cartilage joining the ribs to the breastbone. It is not caused by heart or lung problems. Although the exact cause for costochondritis is not known, it often occurs during times of emotional stress. It can be painful, but it is not dangerous. It usually disappears within one to two weeks, but may recur. Rarely, a more serious condition may cause symptoms similar to costochondritis; therefore, watch for the warning signs listed below. Home Care: If you feel that emotional stress is a cause of your condition, try to identify sources of that stress. It may not be obvious! Learn ways to deal with the stress in your life such as regular exercise, muscle relaxation, meditation, or simply taking time out for yourself. For more information about this, consult your doctor or go to a local bookstore and review books and tapes available on the subject of stress reduction. You may use acetaminophen (Tylenol) or ibuprofen (Motrin, Advil) to control pain, unless another pain medicine was prescribed. [ NOTE: If you have liver disease or ever had a stomach ulcer, talk with your doctor before using these medicines.] The use of heat (hot wet compress or heating pad) with or without local analgesic creams (Deep Heat Rub, Florentino Addison) will be helpful to reduce pain. Follow Up with your doctor as directed or sooner if you do not start to improve within the next two days. Get Prompt Medical Attention if any of the following occur: A change in the type of pain: if it feels different, becomes more severe, lasts longer, or spreads into your shoulder, arm, neck, jaw or back Shortness of breath or increased pain with breathing Weakness, dizziness, or fainting Cough with dark colored sputum (phlegm) or blood Abdominal pain Dark red or black stools Fever of 100.4F (38C) or higher, or as directed by your healthcare provider Chest Pain, Noncardiac Based on your visit today, the exact cause of your chest pain is not certain. Your condition does not seem serious and your pain does not appear to be coming from your heart. However, sometimes the signs of a serious problem take more time to appear. Therefore, please watch for the warning signs listed below. Home Care: Rest today and avoid strenuous activity. Take any prescribed medicine as directed. Follow Up with your doctor or this facility as instructed or if you do not start to feel better within 24 hours. Get Prompt Medical Attention if any of the following occur: A change in the type of pain: if it feels different, becomes more severe, lasts longer, or begins to spread into your shoulder, arm, neck, jaw or back Shortness of breath or increased pain with breathing Cough with dark colored sputum (phlegm) or blood Weakness, dizziness, or fainting Fever of 100.4F (38C) or higher, or as directed by your healthcare provider Swelling, pain or redness in one leg Hydrocodone Bitartrate, Acetaminophen Oral tablet What is this medicine? ACETAMINOPHEN; HYDROCODONE (a set a JEFFRY jose fen; flo droe KOE done) is a pain reliever. It is used to treat mild to moderate pain. How should I use this medicine? Take this medicine by mouth. Swallow it with a full glass of water. Follow the directions on the prescription label. If the medicine upsets your stomach, take the medicine with food or milk. Do not take more than you are told to take. Talk to your section weaver regarding the use of this medicine in children. This medicine is not approved for use in children. What side effects may I notice from receiving this medicine? Side effects that you should report to your doctor or health acute care surgeon as soon as possible: allergic reactions like skin rash, itching or hives, swelling of the face, lips, or tongue breathing problems confusion feeling faint or lightheaded, falls stomach pain yellowing of the eyes or skin Side effects that usually do not require medical attention (report to your doctor or health acute care surgeon if they continue or are bothersome): nausea, vomiting stomach upset What may interact with this medicine? alcohol antihistamines isoniazid medicines for depression, anxiety, or psychotic disturbances medicines for sleep muscle relaxants naltrexone narcotic medicines (opiates) for pain phenobarbital ritonavir tramadol What if I miss a dose? If you miss a dose, take it as soon as you can. If it is almost time for your next dose, take only that dose. Do not take double or extra doses. Where should I keep my medicine? Keep out of the reach of children. This medicine can be abused. Keep your medicine in a safe place to protect it from theft. Do not share this medicine with anyone. Selling or giving away this medicine is dangerous and against the law. Store at room temperature between 15 and 30 degrees C (59 and 86 degrees F). Protect from light. Keep container tightly closed. Throw away any unused medicine after the expiration date. Discard unused medicine and used packaging carefully. Pets and children can be harmed if they find used or lost packages. What should I tell my health care provider before I take this medicine? They need to know if you have any of these conditions: brain tumor Crohn's disease, inflammatory bowel disease, or ulcerative colitis drink more than 3 alcohol-containing drinks per day drug abuse or addiction head injury heart or circulation problems kidney disease or problems going to the bathroom liver disease lung disease, asthma, or breathing problems an unusual or allergic reaction to acetaminophen, hydrocodone, other opioid analgesics, other medicines, foods, dyes, or preservatives or trying to get breast-feeding What should I watch for while using this medicine? Tell your doctor or health acute care surgeon if your pain does not go away, if it gets worse, or if you have new or a different type of pain. You may develop tolerance to the medicine. Tolerance means that you will need a higher dose of the medicine for pain relief. Tolerance is normal and is expected if you take the medicine for a long time. Do not suddenly stop taking your medicine because you may develop a severe reaction. Your body becomes used to the medicine. This does NOT mean you are addicted. Addiction is a behavior related to getting and using a drug for a non-medical reason. If you have pain, you have a medical reason to take pain medicine. Your doctor will tell you how much medicine to take. If your doctor wants you to stop the medicine, the dose will be slowly lowered over time to avoid any side effects. You may get drowsy or dizzy when you first start taking the medicine or change doses. Do not drive, use machinery, or do anything that may be dangerous until you know how the medicine affects you. Stand or sit up slowly. There are different types of narcotic medicines (opiates) for pain. If you take more than one type at the same time, you may have more side effects. Give your health care provider a list of all medicines you use. Your doctor will tell you how much medicine to take. Do not take more medicine than directed. Call emergency for help if you have problems breathing. The medicine will cause constipation. Try to have a bowel movement at least every 2 to 3 days. If you do not have a bowel movement for 3 days, call your doctor or health acute care surgeon. Too much acetaminophen can be very dangerous. Do not take Tylenol (acetaminophen) or medicines that contain acetaminophen with this medicine. Many non-prescription medicines contain acetaminophen. Always read the labels carefully. You have been given the following additional information: Smoking Cessation Chest Pain, Uncertain Cause Chest Wall Pain, Costochondritis Chest Pain, Noncardiac Hydrocodone Bitartrate, Acetaminophen Oral tablet (Electronically signed by Seema Candelaria P.A.-C 03/12/2017 16:32)
--- NOTE | 2017-03-12 16:34 | ED MAR SUMMARY ---
..... Medication Administration Record [facility] [address] [place] [address] Patient: PARAG ARIAS Visit ID: [id number] 31y, M Weight: 149.6 kg Height/Length: 68 in BMI: 50.2 ALLERGIES: No Known Drug Allergy Given 14:53 03/12/2017 Alanna Anderson RAna LauraNAna Laura Medication Administered: TORADOL [IVP], Dose: 30 mg IVP over 2 minute(s), Site: #1 right upper arm. Medication Ordered: Toradol IV 30 mg (NOW). Given 15:43 03/12/2017 Alanna Anderson, RAna LauraN. Medication Administered: DILAUDID [IVP] (HYDROMORPHONE HCL PF), Dose: 0.5 mg IVP over 2 minute(s), Site: #1 right upper arm. Medication Ordered: Dilaudid IV 0.5 mg (HIGH ALERT MEDICATION, NOW).
--- NOTE | 2017-03-12 16:34 | ED MAR SUMMARY ---
..... Medication Administration Record [facility] [address] [place] [address] Patient: PARAG ARIAS Visit ID: [id number] 31y, M Weight: 149.6 kg Height/Length: 68 in BMI: 50.2 ALLERGIES: No Known Drug Allergy Given 14:53 03/12/2017 Alanna Anderson RAna LauraNAna Laura Medication Administered: TORADOL [IVP], Dose: 30 mg IVP over 2 minute(s), Site: #1 right upper arm. Medication Ordered: Toradol IV 30 mg (NOW). Given 15:43 03/12/2017 Alanna Anderson, RAna LauraN. Medication Administered: DILAUDID [IVP] (HYDROMORPHONE HCL PF), Dose: 0.5 mg IVP over 2 minute(s), Site: #1 right upper arm. Medication Ordered: Dilaudid IV 0.5 mg (HIGH ALERT MEDICATION, NOW).
--- NOTE | 2017-03-12 16:34 | ED MED RECONCILIATION SUMMARY ---
Patient: PARAG ARIAS Medication Reconciliation Report [facility] VisitID: [id number] [address] [place] [address] 31y, M Registration Date/Time: 03/12/2017 Weight: 149.6 kg Height/Length: 68 in. BMI: 50.2 ALLERGIES: No Known Drug Allergy The patient's Home Medications are listed below: THE FOLLOWING MEDICATIONS NEED TO BE RECONCILED: Atenolol Oral Citalopram Hydrobromide Oral Flonase Nasal High cholesterol Lisinopril Oral Naproxen Oral Omeprazole Oral The source(s) of the original Home Medication information: Not obtained. The following Medications were given to the patient in the Emergency Department: Toradol [IVP] IVP 30 mg, administered: 03/12/2017 2:53:00 PM Dilaudid [IVP] IVP 0.5 mg, administered: 03/12/2017 3:43:00 PM The following Medications were prescribed to the patient: Hydrocodone/APAP 5mg / 325mg: take 1 orally every 6 hours as needed for pain. Dispense ten (10). No refill. -- Seema Candelaria P.A.-C
--- NOTE | 2017-03-12 16:34 | ED MED RECONCILIATION SUMMARY ---
Patient: PARAG ARIAS Medication Reconciliation Report [facility] VisitID: [id number] [address] [place] [address] 31y, M Registration Date/Time: 03/12/2017 Weight: 149.6 kg Height/Length: 68 in. BMI: 50.2 ALLERGIES: No Known Drug Allergy The patient's Home Medications are listed below: THE FOLLOWING MEDICATIONS NEED TO BE RECONCILED: Atenolol Oral Citalopram Hydrobromide Oral Flonase Nasal High cholesterol Lisinopril Oral Naproxen Oral Omeprazole Oral The source(s) of the original Home Medication information: Not obtained. The following Medications were given to the patient in the Emergency Department: Toradol [IVP] IVP 30 mg, administered: 03/12/2017 2:53:00 PM Dilaudid [IVP] IVP 0.5 mg, administered: 03/12/2017 3:43:00 PM The following Medications were prescribed to the patient: Hydrocodone/APAP 5mg / 325mg: take 1 orally every 6 hours as needed for pain. Dispense ten (10). No refill. -- Seema Candelaria P.A.-C
== END 2017-03-12 16:31 | disposition home or self-care (01) ==
LOC: ED SRH 12:40
DX: R07.9 Chest pain, unspecified (principal); R73.03 Prediabetes; I10 Essential (primary) hypertension; F17.200 Nicotine dependence, unspecified, uncomplicated; E66.9 Obesity, unspecified; Z79.899 Other long term (current) drug therapy
CPT/HCPCS: 90100; 90616; 91556; 92610; 92720; 95059